=== PATIENT | male | born 1975 | race Native Hawaiian/Other Pacific Islander ===

== ENCOUNTER 2020-04-09 15:22 | Outpatient (CLI) | payer BC | END 2020-04-09 19:12 | disposition home or self-care (01) | LOC: RAD 15:22 | DX: U07.1 COVID-19 (principal) ==

== ENCOUNTER 2020-04-11 15:32 | Outpatient (CLI) | payer BC, OTHER | END 2020-04-11 19:51 | disposition home or self-care (01) | LOC: RAD 15:32 | PROVIDERS: ATTEND Nurse Practitioner Family | DX: U07.1 COVID-19 (principal) ==

== ENCOUNTER 2020-04-21 12:08 | Outpatient (CLI) | payer BC, OTHER | END 2020-04-21 22:38 | disposition home or self-care (01) | LOC: RAD 12:08 | DX: U07.1 COVID-19 (principal) ==

== ENCOUNTER 2020-04-25 12:11 | Outpatient (CLI) | payer BC, OTHER | END 2020-04-25 19:32 | disposition home or self-care (01) | LOC: RAD 12:11 | DX: U07.1 COVID-19 (principal) ==

== ENCOUNTER 2020-07-07 10:15 | Outpatient (CLI) | payer BC, OTHER | END 2020-07-07 22:29 | disposition home or self-care (01) | LOC: RAD 10:15 | DX: U07.1 COVID-19 (principal) ==